=== PATIENT | male | born 1950 | race Caucasian/White ===

== ENCOUNTER 2017-02-08 11:47 | Inpatient (IN) | payer MEDICARE, BC ==
[2017-02-08] VITALS (9 sets, daily range): BP systolic 107–152; BP diastolic 44–65; PULSE 70–79; RESP 14–18; Ht 160 cm; Wt 76.3 kg
[~2017-02-08] VITALS: Ht 160 cm; Wt 76.3 kg
[2017-02-08] MEDS ORDERED: ATEN50TA PO (12:41)
[2017-02-08] MEDS ORDERED: ATOR10TA65 PO (12:41)
[2017-02-08] MEDS ORDERED: ASPI-535 PO (12:41)
[2017-02-08] MEDS ORDERED: ACET325T45 PO (12:41)
[2017-02-08] MEDS ORDERED: NITR0.4T6 SL (12:46)
[2017-02-08] MEDS ORDERED: MAGN400O4 PO (12:46)
[2017-02-08] MEDS ORDERED: MORP2SYR IV (12:46)
[2017-02-08] MEDS ORDERED: ALUM1GRA PO (12:46)
[2017-02-08] MEDS ORDERED: ONDA2VIA31 IV (12:46)
[2017-02-08] MEDS ORDERED: IODIXANOL LOCM 100 ML BTL ONE ×2 (13:48→15:12)
[2017-02-08] MEDS ORDERED: LIDOCAINE 1% (MDV) 20 ML INJ ONE (13:48)
[2017-02-08] MEDS ORDERED: NITROGLYCERIN (IC) 100 MCG/ML INJ ONE (13:49)
[2017-02-08] MEDS ORDERED: HEPARIN 1000 UNITS/ML 10 ML INJ ONE (13:49)
[2017-02-08] MEDS ORDERED: VERAPAMIL 5 MG INJ ONE (13:49)
[2017-02-08] MEDS ORDERED: MIDAZOLAM 1 MG/ML 2 ML INJ ONE (13:50)
[2017-02-08] MEDS ORDERED: FENTAnyl 50 MCG/ML VIAL ONE (13:51)
[2017-02-08] MEDS ORDERED: ONDANSETRON 4 MG INJ ONE (15:01)
[2017-02-08] MEDS ORDERED: FUROSEMIDE 40 MG INJ ONE (15:02)
[2017-02-08 15:11] LABS: AADO2 Arterial 53.6 mmHg (7.0-24.0); Arterial Base Excess -1.7 mmol/L (-3.0-3); Arterial COHb 0.1 % (0.0-3.0); Arterial Fraction of Oxyhgb 91.6 % (93.0-99.0); Arterial HCO3 21.4 mmol/L (22.0-26.0); Arterial MetHb 0.4 % (0.0-1.5); Arterial Total Hemglobin 14.2 g/dl (12.0-18.0); MODE ROOM AIR
[2017-02-08 15:13] LABS: Arterial Base Excess -2.9 mmol/L (-3.0-3); Arterial COHb 0.6 % (0.0-3.0); Arterial Fraction of Oxyhgb 70.6 % (93.0-99.0); Arterial HCO3 20.5 mmol/L (22.0-26.0); Arterial MetHb 0.5 % (0.0-1.5); Arterial Total Hemglobin 14.6 g/dl (12.0-18.0); MODE ROOM AIR
[2017-02-08] MEDS ORDERED: SOD CHLORIDE 0.9% 500 ML ONE (15:32)
[2017-02-08] MEDS ORDERED: HOLD all METFORMIN and METFORMIN CONTAINING medications for 48 hours post procedure. Chec XX ONE (16:30)
[2017-02-08] MEDS ORDERED: morphine 4 MG/ML VIAL IV PRN (16:30)
[2017-02-08] MEDS ORDERED: ONDANSETRON 4 MG INJ IV PRN (16:30)
--- NOTE | 2017-02-08 16:41 | OPR ---
Date/Time of Note Date/Time of Note DATE: 02/08/17 TIME: 16:10 Operative Report Free Text/Dictation Procedure Date: 02/08/2017 Procedures Performed: 1)Left heart catheterization with selective left and right coronary angiography. 2)Right heart catheterization. 3)Selective SALDIVAR angiography 4)Aortogram 5)Right femoral artery selective angiography Pre-operative Diagnosis: Unstable angina. Bio AVR with possible severe regurgitation, CAD s/p CABG, h/o coarctation repair, h/o ascending aorta aneurysm (4.9 cm 2010). Post-operative Diagnosis:Same as above plus Severe AR, occluded vein grafts. Indications: 66 yo M with a h/o surgical coarctation repair late , s/p bio AVR 2006, CAD s/p CABG 2006 (reportedly 3 vessel), ascending aorta aneurysm (4.[address] 2010), who presented with chest pain and SOB. The pt was initially treated for CHF. His troponins were negative and so he underwent treadmill stress nuclear study. The pt had chest pain and dyspnea starting at [address] depressions. The nuclear perfusion imaging showed a small reversible septal defect with preserved EF. The pt was brought to the cardiac wharf laborer for complete evaluation. Description of Procedure: After informed consent, the patient was brought to the cardiac catheterization lab. The procedure site was prepped and draped in usual manner. The patient was premedicated with versed 1 mg and fentanyl 25 mcg. 10 mL lidocaine was injected into the right groin. Next using the Seldinger technique, the 7 amharic sheath was inserted into the right femoral vein and the 6 amharic sheath into the right femoral artery. The right heart catheterization was then obtained including saturations. Next the pigtail catheter was advanced to the left ventricle and hemodynamics obtained. Pullback gradients were obtained. Next an aortogram was performed. Subsequently the JL5 catheter was used to engage the left coronary. The JR4 would not engage the RCA so it was used to obtain selective angiography of the SALDIVAR. The Gio right catheter was used to engage the RCA. Next femoral angiography was done but the site was not suitable for closure so manual pressure was used for hemostasis. Findings: Anatomy Left main: no significant disease LAD: ostial 30%, mid subtotal 100%, fills via SALDIVAR Diagonal: luminal irregularities Circumflex:luminal irregularities Obtuse marginal:luminal irregularities RCA: mid long 40% PDA:luminal irregularities PLV:luminal irregularities No vein grafts seen by aortogram and no competitive flow seen in Cx/OM or RCA territories SALDIVAR-LAD: aneurysmal dilation throughout. Within one aneurysmal segment there is a 50-60% stenosis however when compared with the healthy SALDIVAR segment proximally, it is similar. Aortogram: 1)Severe aortic regurgitation 2)Ascending aorta aneurysm (measures up to 4.0 cm but is known to be as much as 4.9cm on CT 2010) 3)Coarctation site noted, likely mild. No gradient across coarctation Hemodynamics: LV:145/0 Ao: 125/41 LVEDP: 33 mmHg RA: 9,8 (6) RV: 34/0, EDP 7 PA 35/11 (22) PW: 15,15 (12) PA sat : 71% FA sat 92% CO: 5.9 CI: 3.3 Contrast used: 165 mL Fluoroscopy time: 9.7 min Assessment: 1)Severe aortic regurgitation of bioprosthetic AVR 2)CAD with occluded vein grafts. Intermediate RCA disease (likely nonischemic) . Intermediate SALDIVAR disease (in an aneurysmal segment). 3)Ascending aorta aneurysm: 4.0cm by cath and echo. Previously 4.9cm by CT 2010. 4)Coarctation repair: no gradient noted. Plan: -Surgical evaluation for multidisciplinary decision making (though this would be his third sternotomy and not ideal) -May need to better evaluate aortic aneurysm by CT (assuming renal function remains ok). If >5.5cm, may need aorta replacement, redo AVR, +/- CABG. If <5cm , possibly consideration for TAVR +/- FFR and PCI of SALDIVAR (though only small septal ischemia by MPI and symptoms may all just be related to his aortic valve) PORTILLO GUO Feb 08, 2017 16:41
[2017-02-08] MEDS: ATORVASTATIN 80 MG TAB PO SCH (20:52)
[2017-02-09] VITALS (12 sets, daily range): BP systolic 111–140; BP diastolic 47–58; PULSE 69–83; RESP 16–19
[2017-02-09 07:27] LABS: BASOPHILS % 0.3 % (0.0-2.0); EOSINOPHILS # 0.1 10^3/ul (0.0-0.5); EOSINOPHILS % 2.3 % (0.0-7.0); HEMATOCRIT 37.1 % (42.0-52.0); HEMOGLOBIN 12.7 g/dl (14.0-18.0); LYMPHOCYTES # 1.6 10^3/ul (0.8-2.9); MEAN CORPUSCULAR HEMOGLOBIN 30.5 pg (29.0-33.0); MEAN CORPUSCULAR HGB CONC 34.2 g/dl (32.0-37.0); MEAN PLATELET VOLUME 10.1 fl (7.4-10.4); MONOCYTE # 0.6 10^3/ul (0.3-0.9); NEUTROPHIL # 3.8 10^3/ul (1.6-7.5); NEUTROPHILS % 61.1 % (39.0-77.0); PLATELET COUNT 153 10^3/UL (140-415); RED BLOOD COUNT 4.17 10^6/ul (4.70-6.10); RED CELL DISTRIBUTION WIDTH 13.1 % (11.5-14.5); WHITE BLOOD COUNT 6.2 10^3/ul (4.8-10.8)
[2017-02-09 07:53] LABS: CALCIUM 8.8 mg/dl (8.4-10.2); CREATININE 1.48 mg/dl (0.61-1.24); POTASSIUM 4.1 mmol/L (3.5-5.1)
--- NOTE | 2017-02-09 08:38 | CONS ---
Date/Time of Note Date/Time of Note DATE: 02/09/17 TIME: 08:34 Assessment/Plan Assessment/Plan Chief Complaint/Hosp Course Severe aortic regurgitation of bioprosthetic AVR: needs AVR either surgical or TAVR CAD s/p CABG: occluded vein grafts. Intermediate RCA disease (likely nonischemic). Intermediate SALDIVAR disease (in an aneurysmal segment) which may be ischemic. Ascending aorta aneurysm: 4.0cm by cath and echo. Previously 4.9cm by CT 2010. Needs repeat evaluation Coarctation repair: no gradient noted Acute diastolic/valvular heart failure: Mild on admission and prior to cath.EDP was elevated by cath. Now euvolemic by exam. CKD: Cr 1.4 at baseline. Currently stable but will need to wait until tomorrow to eval for AMELIA -Surgical evaluation for multidisciplinary decision making (though this would be his third sternotomy and not ideal) -Will need to better evaluate aortic aneurysm by CT (assuming renal function remains ok). If >5.5cm, may need aorta replacement, redo AVR, +/- CABG. If <5cm , possibly consideration for TAVR +/- FFR and PCI of SALDIVAR (though only small septal ischemia by MPI and symptoms may all just be related to his aortic valve) -If Cr stable tomorrow, chest CTA to eval aneurysm size -If aneurysm is stable ~5cm, then d/c and will be referred to [facility] for TAVR evaluation -continue ASA, statin -hold BB for now as may worsen AR Problems: Consultation Date/Type/Reason Admit Date/Time Feb 08, 2017 at 16:19 Initial Consult Date 24 HR Interval Summary Free Text/Dictation Doing well overall. No chest pain or SOB. Cr 1.5 this am. Exam/Review of Systems Vital Signs Vitals Vital Signs Date Time Temp Pulse Resp B/P Pulse Ox O2 Delivery O2 Flow Rate FiO2 02/09/17 08:11 70 02/09/17 07:35 98.8 18 111/49 93 02/09/17 00:10 Room Air Intake and Output 02/08/17 02/08/17 02/09/17 15:00 23:00 07:00 Intake Total 440 ml 120 ml Output Total 800 ml Balance -360 ml 120 ml Exam Constitutional: alert, oriented Psych: no complaints Head: atraumatic, normocephalic Neck: jvd (7cm) Respiratory: clear to auscultation, No crackles/rales Cardiovascular: diastolic murmur (2/4), regular rate and rhythm, systolic murmur (2/6) Gastrointestinal: non-tender, soft Extremities: other (right groin no hematoma or bruit ) Neurological: nl mental status, nl speech Results Result Diagram: 02/09/17 0649 02/09/17 0649 Results 24 hrs Laboratory Tests Test 02/08/17 15:02 02/08/17 15:03 02/09/17 06:49 Blood Gas Specimen Source Blood arterial Blood arterial Arterial Blood Date Drawn 02/08/2017 2:50:58 PM 02/08/2017 2:50:04 PM Arterial Blood pH (Temp corrected) 7.460 H 7.421 Arterial Blood pCO2 (Temp correct) 30.5 L 32.3 L Arterial Blood pO2 (Temp corrected) 60.1 L 37.1 *L Arterial Blood HCO3 21.4 L 20.5 L Arterial Blood Base Excess -1.7 -2.9 Arterial Blood Oxygen Saturation 92.1 L 71.4 L [place] Test N/A N/A Arterial Blood Gas Puncture Site Femoral PUL ART LINE Arterial Blood Carboxyhemoglobin 0.1 0.6 Arterial Blood Methemoglobin 0.4 0.5 Blood Gas A-a O2 Differential 53.6 H 74.0 H Oxyhemoglobin Percent 91.6 L 70.6 L Total Hemoglobin 14.2 14.6 Blood Gas Temperature 36.0 37.0 Blood Gas Modality ROOM AIR ROOM AIR FiO2 21.0 21.0 Blood Gas Critical Value Read Back DR. BRANT GUO Blood Gas Notified Whom Marlin Isaac Blood Gas Notified Time 02/08/2017 3:10:43 PM 02/08/2017 3:13:00 PM White Blood Count 6.2 Red Blood Count 4.17 L Hemoglobin 12.7 L Hematocrit 37.1 L Mean Corpuscular Volume 89.0 Mean Corpuscular Hemoglobin 30.5 Mean Corpuscular Hemoglobin Concent 34.2 Red Cell Distribution Width 13.1 Platelet Count 153 Mean Platelet Volume 10.1 Neutrophils % 61.1 Lymphocytes % 26.0 Monocytes % 10.0 Eosinophils % 2.3 Basophils % 0.3 Nucleated Red Blood Cells % 0.0 Neutrophils # 3.8 Lymphocytes # 1.6 Monocytes # 0.6 Eosinophils # 0.1 Basophils # 0.0 Nucleated Red Blood Cells # 0.0 Sodium Level 142 Potassium Level 4.1 Chloride Level 103 Carbon Dioxide Level 25 Anion Gap 18 H Blood Urea Nitrogen 24 H Creatinine 1.48 H Glucose Level 96 Calcium Level 8.8 Medications Medications Current Medications Morphine Sulfate (morphine) 2 mg Q2H PRN IV FOR NON CARDIAC PAIN (4-10); Start 02/08/17 at 16:30 Ondansetron HCl (Zofran Inj) 4 mg Q4H PRN IV NAUSEA AND/OR VOMITING; Start 02/08 at 16:30 Aspirin (Aspirin) 325 mg DAILY PO ; Start 02/09/17 at 09:00 Atorvastatin Calcium (Lipitor) 80 mg HS PO Last administered on 02/08/17t 20:52 ; Admin Dose 80 MG; Start 02/08/17 at 21:00 PORTILLO GUO Feb 09, 2017 08:38
[2017-02-09] MEDS: ASPIRIN 325 MG TAB PO SCH (09:02)
[2017-02-09] MEDS ORDERED: ACETAMINOPHEN 325 MG TAB PO PRN (13:00)
[2017-02-09] MEDS ORDERED: NITROGLYCERIN (SL) 0.4 MG TAB SL PRN (13:00)
--- NOTE | 2017-02-09 15:36 | CONS ---
Date/Time of Note Date/Time of Note DATE: 02/09/17 TIME: 15:29 Assessment/Plan Assessment/Plan Additional Assessment/Plan 66 year old male with CHF and severe AI in a bioprosthetic valve with patent SALDIVAR to LAD. He has a history of an ascending aortic aneurysm measuring 4.9cm several years ago. He will need to have a repeat ct chest to assess his aneurysm size. If over 5.3cm would have to consider redo sternotomy and AVR/ repair of aneurysm. I discussed this with the patient and his son in law. Will await ct chest in renal function stable. Consultation Date/Type/Reason Admit Date/Time Feb 08, 2017 at 16:19 Date of Consultation: Feb 09, 2017 Reason for Consultation aortic insufficiency and ascending aortic aneurysm Referring Provider: PORTILLO UGO of Present Illness 66 year old male admitted with MCKENZIE and CHF. Echo shows severe AI in a bioprosthetic valve place 10 years ago. Also had cabgx2 but cath shows only patent SALDIVAR. He also had a coarctation repair via a left thoracotomy. We are asked to see regarding AVR Constitutional: No chills, No diaphoresis, No disoriented, No febrile, No improved, No no complaints, No other, No poor po, No requiring IVF, No requiring O2 Eyes: No discharge, No no complaints, No other, No pain, No redness, No visual change ENT: No bleeding, No congestion, No discharge, No dysphagia, No no complaints, No other, No pain, No sore throat Respiratory: cough, shortness of breath Cardiovascular: No chest pain, No edema, No lightheadedness, No no complaints, No orthopenea, No other, No palpitations, No paroxysmal nocturnal dyspnea Gastrointestinal: No blood, No constipation, No decreased appetite, No diarrhea , No flatus, No nausea, No no complaints, No other, No pain, No passing stool, No vomiting Genitourinary: No bleeding, No discharge, No dysuria, No flank pain, No hematuria, No no complaints, No other Musculoskeletal: No back pain, No bone/joint pain, No neck pain, No no complaints, No other, No restricted range of motion, No swelling Skin: No bruising, No erythema, No laceration, No no complaints, No other, No pruritis, No rash, No skin lesions Neurologic: No confusion, No dizziness, No focal-weakness, No headache, No no complaints, No other, No seizure, No syncope Endocrine: No dry skin, No no complaints, No other, No polydypsia, No polyuria , No temp intolerance Lymphatic: No adenopathy, No lymphadema, No no complaints, No other, No tender nodes Psychological: no complaints, No anxiety, No confusion, No depression, No nl mood/affect, No other, No suicidal Immunologic: No immunodeficiency, No no complaints, No other, No pruritis, No rhinitis, No urticaria Past Medical History Medical History: no pertinent history, coronary artery disease, hypertension Past Surgical History coarctation repair via left thoracotomy and AVR/CABG Family History Significant Family History: no pertinent family hx Social History Alcohol Use: none Smoking Status: Former smoker Drug Use: none Exam/Review of Systems Vital Signs Vitals Vital Signs Date Time Temp Pulse Resp B/P Pulse Ox O2 Delivery O2 Flow Rate FiO2 02/09/17 12:09 77 02/09/17 11:15 98.3 16 114/51 95 02/09/17 00:10 Room Air Intake and Output 02/08/17 02/08/17 02/09/17 15:00 23:00 07:00 Intake Total 440 ml 120 ml Output Total 800 ml Balance -360 ml 120 ml Exam Constitutional: No alert, No distress, No frail, No non-verbal, No obese, No oriented, No other, No well developed Psych: No anxiety, No confusion, No depression, No nl mood/affect, No no complaints, No other, No suicidal Head: No atraumatic, No hematomas, No lacerations, No normocephalic, No other Eyes: No EOMI, No PERRL, No fundi, disc, No icteric, No nl conjunctiva, No nl lids, No nl sclera, No other ENMT: No intubated, No mucosa pink and moist, No nl external ears & nose, No nl lips & teeth, No nl nasal mucosa & septum, No other, No tympanic membranes Neck: No bruits, No jvd, No masses, No non-tender, No nuchal rigidity, No other , No supple, No thyromegaly Respiratory: No clear to auscultation, No congested cough, No crackles/rales, No diminished breath sounds, No intercostal retraction, No labored breathing, No normal air movement, No other, No respirations, No tactile fremitus, No wheezing Cardiovascular: diastolic murmur Gastrointestinal: No ascites, No bowel sounds, No distended, No firm, No hepatomegaly, No mass, No nl liver, spleen, No non-tender, No other, No rebound or guarding, No soft, No splenomegaly, No surgical scars, No tender Genitourinary - Male: No CVA tenderness, No discharge, No nl penis, No nl scrotum, No other Musculoskeletal: No joint tenderness, No muscle tone, No muscle weakness, No nl extremities to inspection, No nl gait and stance, No other, No range of motion, No spine non-tender, No swelling Extremities: No calf tenderness, No clubbing, No cyanosis, No edema, No normal pulses, No other, No palpable cord, No pitting pedal edema, No tenderness Neurological: 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, No DTR's symmetric, No confused, No focal weakness, No lethargic, No nl mental status, No nl speech, No nl strength, No numbness, No other, No reflexes, No unresponsive Lymph: No enlarged, No nl lymph nodes, No nontender, No other Results Result Diagram: 02/09/17 0649 02/09/17 0649 Results 24 hrs Laboratory Tests Test 02/09/17 06:49 White Blood Count 6.2 Red Blood Count 4.17 L Hemoglobin 12.7 L Hematocrit 37.1 L Mean Corpuscular Volume 89.0 Mean Corpuscular Hemoglobin 30.5 Mean Corpuscular Hemoglobin Concent 34.2 Red Cell Distribution Width 13.1 Platelet Count 153 Mean Platelet Volume 10.1 Neutrophils % 61.1 Lymphocytes % 26.0 Monocytes % 10.0 Eosinophils % 2.3 Basophils % 0.3 Nucleated Red Blood Cells % 0.0 Neutrophils # 3.8 Lymphocytes # 1.6 Monocytes # 0.6 Eosinophils # 0.1 Basophils # 0.0 Nucleated Red Blood Cells # 0.0 Sodium Level 142 Potassium Level 4.1 Chloride Level 103 Carbon Dioxide Level 25 Anion Gap 18 H Blood Urea Nitrogen 24 H Creatinine 1.48 H Glucose Level 96 Calcium Level 8.8 Medications Medications Current Medications Morphine Sulfate (morphine) 2 mg Q2H PRN IV FOR NON CARDIAC PAIN (4-10); Start 02/08/17 at 16:30 Ondansetron HCl (Zofran Inj) 4 mg Q4H PRN IV NAUSEA AND/OR VOMITING; Start 02/08 at 16:30 Aspirin (Aspirin) 325 mg DAILY PO Last administered on 02/09/17 09:02; Admin Dose 325 MG; Start 02/09/17 at 09:00 Atorvastatin Calcium (Lipitor) 80 mg HS PO Last administered on 02/08/17 20:52 ; Admin Dose 80 MG; Start 02/08/17 at 21:00 Acetaminophen (Tylenol Tab) 650 mg Q6H PRN PO PAIN; Start 02/09/17 at 13:00 Atenolol (Tenormin) 50 mg BID PO ; Start 02/09/17 at 21:00 Magnesium Hydroxide (Milk Of Mag) 30 ml HS PO ; Start 02/09/17 at 21:00 Nitroglycerin (Nitroglycerin (Sl Tab) 0.4 Mg) 1 tab [id number] PRN SL CHEST PAIN ; Start 02/09/17 at 13:00 SOCO TYLER MD Feb 09, 2017 15:36
[2017-02-09 17:43] LABS: ADD UMIC YES; UR ASCORBIC ACID NEGATIVE (NEGATIVE); UR BILIRUBIN (Dip) NEGATIVE (NEGATIVE); UR BLOOD (Dip) 1+ mg/dL (NEGATIVE); UR CLARITY CLEAR (CLEAR); UR COLOR YELLOW (YELLOW); UR GLUCOSE (Dip) NEGATIVE (NEGATIVE); UR KETONES (Dip) NEGATIVE (NEGATIVE); UR LEUKOCYTE ESTERASE (Dip) NEGATIVE Leu/ul (NEGATIVE); UR MUCUS FEW /HPF (NONE SEEN); UR NITRITE (Dip) NEGATIVE (NEGATIVE); UR RBC 4 /HPF (0-5); UR SPECIFIC GRAVITY (Dip) 1.032 (1.003-1.030); UR TOTAL PROTEIN (Dip) NEGATIVE (NEGATIVE); UR UROBILINOGEN (Dip) 2+ mg/dL (NEGATIVE)
--- NOTE | 2017-02-09 18:04 | RADRPT ---
PROCEDURE: Renal US. CLINICAL INDICATION: Acute kidney injury. TECHNIQUE: Multiple sonographic images of the kidneys and urinary bladder were obtained. The imag es were reviewed on a PACS workstation. COMPARISON: No prior studies are available for comparison. FINDINGS: The right kidney measures 10.3 x 4.6 x 6.1 cm. The left kidney measures 10.5 x 5.9 x 4.6 cm. There is no renal mass. There is no hydronephrosis. There is no renal calculus. Renal parenchymal thickness is normal bilaterally. Echogenicity is normal bilaterally. The perirenal regions are normal with no fluid collection or mass. The urinary bladder is unremarkable. IMPRESSION: 1. Unremarkable renal ultrasound. RPTAT: QQ .Donovan Enrique MD, Date Time Electronically viewed and signed by .Donovan Enrique MD, on 02/09/2017 18:04 .R/
[2017-02-09 18:10] LABS: PROTEIN URINE < 5.0 mg/dl (0.0-11.9)
[2017-02-09] MEDS: MAGNESIUM HYDROXIDE 30ML CUP PO SCH (20:34)
[2017-02-09] MEDS: ATORVASTATIN 80 MG TAB PO SCH (20:34)
[2017-02-09] MEDS ORDERED: ATENOLOL 50 MG TAB PO SCH (21:00)
--- NOTE | 2017-02-09 23:46 | HP ---
Date/Time of Note Date/Time of Note DATE: 02/09/17 TIME: 23:30 Assessment/Plan VTE Prophylaxis VTE Prophylaxis Intervention: ambulation VTE Contraindication Reason: peripheral vascular disease Lines/Catheters IV Catheter Type (from Nrsg): [place] [employer] line still needed: No Reason Cath still needed: urinary retention Assessment/Plan Assessment/Plan 1.S/P AVR now with severe regurgitation; preserved LVEF 2.S/P Resection of coarctation of aorta 3.On cumadine 4.HTN 5.Dyslipidemia 6.Recent (less than a month )hx of left leg selling after long flight( possible thrombus) 7.CAD 8.BPH 9.Thoracic aortic aneurism 10.LBP 11.KELLY of knees 12 incomplete data. HPI/ROS Admit Date/Time Admit Date/Time I was asked by the family to fallow the patient as an attending. Discussed with Mike Luciano.Hx from the patient, ,daughter, son and by reviewing the office record.Feb 08, 2017 at 16:19 Hx of Present Illness Doing well until about one week ago when he felt weakness while swimming.Patint returned from [facility] about 2 weeks ago and had noticed of having left leg swelling after about 14 hours of flight from [facility]. 3-4 days after that swelling disappeared. Last 2-3 days before entering the [facility] hospital his sob got even worse. He was unable to walk 6-7 steps. At night he literally was suffocating.Transferred to [facility] for angio and valvular status check.Chart reviewed. ROS Eyes: No discharge, No no complaints, No other, No pain, No redness, No visual change ENT: No bleeding, No congestion, No discharge, No dysphagia, No no complaints, No other, No pain, No sore throat Respiratory: cough, shortness of breath Cardiovascular: No chest pain, No edema, No lightheadedness, No no complaints, No orthopenea, No other, No palpitations, No paroxysmal nocturnal dyspnea Gastrointestinal: No blood, No constipation, No decreased appetite, No diarrhea , No flatus, No nausea, No no complaints, No other, No pain, No passing stool, No vomiting Genitourinary: No bleeding, No discharge, No dysuria, No flank pain, No hematuria, No no complaints, No other Musculoskeletal: No back pain, No bone/joint pain, No neck pain, No no complaints, No other, No restricted range of motion, No swelling Skin: No bruising, No erythema, No laceration, No no complaints, No other, No pruritis, No rash, No skin lesions Neurologic: No confusion, No dizziness, No focal-weakness, No headache, No no complaints, No other, No seizure, No syncope Lymphatic: No adenopathy, No lymphadema, No no complaints, No other, No tender nodes Psychological: No anxiety, No confusion, No depression, No nl mood/affect, No no complaints, No other, No suicidal Immunologic: No immunodeficiency, No no complaints, No other, No pruritis, No rhinitis, No urticaria PMH/Family/Social Past Medical History Medical History: angina, congestive heart failure, coronary artery disease, deep vein thrombosis, GERD, GI bleed, high cholesterol, hypertension, urinary tract infection Past Surgical History Past Surgical Hx: other (Resection of the coarctation of aorta about 1986 in [facility] [place]; AVR 2005 in [facility] ; ) Family History Significant Family History: heart disease, COPD Social History Alcohol Use: none Smoking Status: Former smoker Drug Use: none Exam/Review of Systems Vital Signs Vitals Vital Signs Date Time Temp Pulse Resp B/P Pulse Ox O2 Delivery O2 Flow Rate FiO2 02/09/17 20:00 83 02/09/17 19:23 98.1 19 140/50 99 02/09/17 00:10 Room Air Intake and Output 02/08/17 02/08/17 02/09/17 15:00 23:00 07:00 Intake Total 440 ml 120 ml Output Total 800 ml Balance -360 ml 120 ml Exam Constitutional: alert, distress, frail, non-verbal, oriented, well developed, No other Psych: anxiety, depression, No confusion, No nl mood/affect, No no complaints, No other, No suicidal Head: No atraumatic, No hematomas, No lacerations, No normocephalic, No other Eyes: EOMI, PERRL, nl lids, No fundi, disc, No icteric, No nl conjunctiva, No nl sclera, No other ENMT: nl external ears & nose, nl lips & teeth, nl nasal mucosa & septum, tympanic membranes, No intubated, No mucosa pink and moist, No other Neck: bruits, jvd, nuchal rigidity, No masses, No non-tender, No other, No supple, No thyromegaly Respiratory: clear to auscultation, diminished breath sounds, normal air movement, No congested cough, No crackles/rales, No intercostal retraction, No labored breathing, No other, No respirations, No tactile fremitus, No wheezing Cardiovascular: bruits, diastolic murmur, jugular venous distention (JVD), murmurs/extra sounds, other (s/p midline sternothomy scar.), systolic murmur , No S3, No S4, No edema, No gallop, No irregular rhythm, No nl pulses, No regular rate and rhythm, No rub Gastrointestinal: bowel sounds, distended, nl liver, spleen, surgical scars Genitourinary - Male: CVA tenderness, nl penis, nl scrotum Genitourinary - Female: CVA tenderness Musculoskeletal: joint tenderness, muscle tone, muscle weakness Extremities: normal pulses Neurological: PIPE WELDER II-XII intact, nl mental status, nl speech, No DTR's symmetric, No confused, No focal weakness, No lethargic, No nl strength, No numbness, No other, No reflexes, No unresponsive Skin: No diaphoresis, No ecchymosis, No laceration, No nl turgor, No other, No puncture, No rash or lesions Lymph: No enlarged, No nl lymph nodes, No nontender, No other Labs Result Diagram: 02/09/1749 02/09/17 0649 Medications Medications Current Medications Morphine Sulfate (morphine) 2 mg Q2H PRN IV FOR NON CARDIAC PAIN (4-10); Start 02/08/17 at 16:30 Ondansetron HCl (Zofran Inj) 4 mg Q4H PRN IV NAUSEA AND/OR VOMITING; Start 02/08 at 16:30 Aspirin (Aspirin) 325 mg DAILY PO Last administered on 02/09/17 09:02; Admin Dose 325 MG; Start 02/09/17 at 09:00 Atorvastatin Calcium (Lipitor) 80 mg HS PO Last administered on 02/08/17 20:52 ; Admin Dose 80 MG; Start 02/08/17 at 21:00 Acetaminophen (Tylenol Tab) 650 mg Q6H PRN PO PAIN; Start 02/09/17 at 13:00 Magnesium Hydroxide (Milk Of Mag) 30 ml HS PO ; Start 02/09/17 at 21:00 Nitroglycerin (Nitroglycerin (Sl Tab) 0.4 Mg) 1 tab [id number] PRN SL CHEST PAIN ; Start 02/09/17 at 13:00 VICKY CRAIG MD Feb 09, 2017 23:40
[2017-02-10] VITALS (12 sets, daily range): BP systolic 104–124; BP diastolic 51–59; PULSE 73–83; RESP 19–20
--- NOTE | 2017-02-10 05:40 | CONS ---
DATE OF ADMISSION: 02/08/2017 DATE OF CONSULTATION: 02/09/2017 CHIEF COMPLAINT: Chest pain. HISTORY OF PRESENT ILLNESS: This is a 66-year-old male with a past medical history of hypertension, a history of extensive cardiac history including CABG, aortic valve replacement. The patient presented to an outside hospital approximately 2 days ago with experience of epigastric discomfort which traveled to his chest progressively, worsening. The patient upon arrival to the outside hospital, was subsequently admitted. The patient was stabilized and then transferred to [facility] to undergo elective cardiac catheterization. The patient following the catheterization was noted to have multi-vessel disease, severe aortic insufficiency. The patient was admitted to telemetry for further evaluation. In terms of the patient's renal history, the patient at the outside hospital noted to have creatinine 1.4 mg/dL. The patient has no prior history of chronic kidney disease. He denies any recent NSAID use ,any rashes, frothy urine. PAST MEDICAL HISTORY: As stated above. History of coronary artery disease, hypertension, aortic stenosis. PAST SURGICAL HISTORY: Includes: 1. CABG 2003. 2. The aortic valve replacement in 2006. 3. Stent placements in 2003. FAMILY HISTORY: Noncontributory. SOCIAL HISTORY: Social drinker. MEDICATION: Reviewed and reconciled. REVIEW OF SYSTEMS: Fourteen point review of systems was conducted. Pertinent positives in HPI, otherwise negative. PHYSICAL EXAMINATION: VITAL SIGNS: Blood pressure is 112/47, respirations 16, pulse 75, temperature 98.4. HEENT: Head is normocephalic. NECK: Supple. HEART: Regular rate. LUNGS: Diminished breath sounds at the base. ABDOMEN: Soft, nontender to palpation. No rebound or guarding. EXTREMITIES: Negative for clubbing, cyanosis, no edema. DERMATOLOGIC: No rashes. MUSCULOSKELETAL: No joint effusion. NEUROLOGIC: No focal deficits. LABORATORY: The patient's laboratory data shows sodium 142, potassium 4.1, chloride 103, BUN 24, creatinine 1.48. White count 6.2, hemoglobin 12.7, hematocrit 37.1, platelet count is 163. ASSESSMENT AND PLAN: 1. Chest pain. The patient is status post cardiac catheterization which shows intermediate RCA disease, HOLLOWAY disease. Plan at this point, continue current medical management. Will follow up with Cardiology for further recommendations. 2. Severe aortic regurgitation with a bioprosthetic valve. The patient needs aortic valve replacement. A CT surgery consult has been placed. Will follow up recommendations. Monitor closely. 3. Ascending aortic aneurysm. The patient is pending possible CT angio once renal function stabilizes. 4. Nonoliguric acute kidney injury with unknown baseline creatinine. Etiology may be secondary to hemodynamics. Possibility of contrast induced nephropathy is a consideration. Plan is to check a urinalysis with micro analysis. Check urine electrolytes. The patient is status post IV fluids. Continue supportive care. Renally dose medications. Avoid BRISEYDA inhibitor at this time. 5. Acute diastolic heart failure. The patient appears euvolemic on exam. Monitor Is and OS closely. 6. History of coronary disease, status post CABG. Continue medical management. 7. Hypertension. Continue current blood pressure regimen. 8. Gastrointestinal and deep venous thrombosis prophylaxis. Continue PPI and sequential leg squeezes. Dictated By: Kingsley Reyez DO /alyssia/jayden /Document#: [id number]
[2017-02-10 07:25] LABS: BASOPHILS % 0.3 % (0.0-2.0); EOSINOPHILS # 0.2 10^3/ul (0.0-0.5); EOSINOPHILS % 3.1 % (0.0-7.0); HEMATOCRIT 34.7 % (42.0-52.0); HEMOGLOBIN 11.9 g/dl (14.0-18.0); LYMPHOCYTES # 1.8 10^3/ul (0.8-2.9); LYMPHOCYTES % 29.1 % (15.0-51.0); MEAN CORPUSCULAR HEMOGLOBIN 30.5 pg (29.0-33.0); MEAN CORPUSCULAR HGB CONC 34.3 g/dl (32.0-37.0); MEAN PLATELET VOLUME 10.2 fl (7.4-10.4); MONOCYTE # 0.6 10^3/ul (0.3-0.9); MONOCYTES % 10.2 % (0.0-11.0); NEUTROPHIL # 3.5 10^3/ul (1.6-7.5); PLATELET COUNT 151 10^3/UL (140-415); RED CELL DISTRIBUTION WIDTH 13.2 % (11.5-14.5); WHITE BLOOD COUNT 6.2 10^3/ul (4.8-10.8)
[2017-02-10 07:51] LABS: CREATININE 1.28 mg/dl (0.61-1.24); MAGNESIUM 1.9 mg/dl (1.7-2.5); PHOSPHORUS 4.1 mg/dl (2.5-4.9); POTASSIUM 4.2 mmol/L (3.5-5.1)
[2017-02-10] MEDS: ASPIRIN 325 MG TAB PO SCH (08:46)
[2017-02-10] MEDS ORDERED: SOD CHLORIDE 0.9% 1,000 ML IV ONE ×2 (11:00→20:00)
--- NOTE | 2017-02-10 11:03 | PN ---
DATE: 02/10/2017 SUBJECTIVE DATA: The patient is stable. No acute events overnight. No fevers, chills, nausea, vomiting. No shortness of breath. OBJECTIVE DATA: VITAL SIGNS: Blood pressure is 104/51, respirations 20, pulse 76, temperature 98.5. HEENT: Head is normocephalic. NECK: Supple. HEART: Regular rate. LUNGS: Diminished breath sounds at the bases. ABDOMEN: Soft, nontender to palpation. No rebound or guarding. EXTREMITIES: Negative for clubbing, cyanosis. No edema. DERMATOLOGIC: No rashes. MUSCULOSKELETAL: No joint effusion. NEUROLOGIC: No change in exam. The patient's medications have been reviewed. LABORATORY AND DIAGNOSTIC DATA: Sodium 1402, potassium 4.2, chloride 125. Creatinine 1.28. White count 6.2, hemoglobin 9.9, hematocrit 34.7; platelet count is 151. ASSESSMENT AND PLAN: 1. Nonoliguric acute kidney injury with unknown baseline creatinine. Etiology is likely secondary to hemodynamics. Renal function improved over 24 hours. No evidence of contrast-induced nephropathy at this time. At this point, I would recommend to resume IV fluids prior to any CT angiogram to optimize and prevent contrast-associated nephropathy. Otherwise continue supportive care, renally dose medications for nephrotoxins. 2. Anemia. Monitor hemoglobin and hematocrit levels. 3. Mineral bone disorder. Will monitor calcium and phosphorus levels. 4. Severe aortic insufficiency with bioprosthetic valve. The patient has been evaluated by CT Surgery, pending possible aortic valve replacement. 5. Ascending aortic aneurysm. The patient is pending CT angiogram. Follow up with CT Surgery for recommendations. 6. Acute diastolic heart failure. The patient is euvolemic on exam. Continue to monitor. 7. Coronary artery disease. History of coronary artery bypass graft. Continue medical management. 8. Hypertension. Continue current blood pressure regimen. 9. Gastrointestinal and deep venous thrombosis prophylaxis. Continue proton-pump inhibitor and sequential leg squeezers. Dictated By: Kingsley Reyez DO /alyssia/teto /Document#: [id number]
--- NOTE | 2017-02-10 12:34 | PN ---
Date/Time of Note Date/Time of Note DATE: 02/10/17 TIME: 12:34 Assessment/Plan VTE Prophylaxis VTE Prophylaxis Intervention: ambulation, anti-embolic stocking VTE Contraindication Reason: peripheral vascular disease Lines/Catheters IV Catheter Type (from Nrs): [place] [employer] Central line still needed: No Urinary Cath still in place: No Reason Cath still needed: urinary retention Assessment/Plan Assessment/Plan 1.S/P AVR now with severe regurgitation; preserved LVEF 2.S/P Resection of coarctation of aorta 3.On cumadine 4.HTN 5.Dyslipidemia- 6.Recent (less than a month )hx of left leg selling after long flight( possible thrombus) 7.CAD- s/p CABG 8.BPH 9.Thoracic aortic aneurism 10.LBP 11.KELLY of knees 12 incomplete data. Cont'd Hospitalization Reason: Ct angiogramm. Subjective 24 Hr Interval Summary Free Text/Dictation Dry cough. I am getting tired and sob very easily. Subjective hx not possible: other (weak.) Constitutional: improved, poor po, requiring O2, No chills, No diaphoresis, No disoriented, No febrile, No no complaints, No other, No requiring IVF Eyes: No discharge, No no complaints, No other, No pain, No redness, No visual change ENT: No bleeding, No congestion, No discharge, No dysphagia, No no complaints, No other, No pain, No sore throat Respiratory: cough, shortness of breath, No no complaints, No other, No pain, No pleuritic pain, No sputum, No wheezing Cardiovascular: chest pain, lightheadedness, orthopenea, No edema, No no complaints, No other, No palpitations, No paroxysmal nocturnal dyspnea Gastrointestinal: constipation, pain, passing stool, No blood, No decreased appetite, No diarrhea, No flatus, No nausea, No no complaints, No other, No vomiting Genitourinary: dysuria, flank pain, No bleeding, No discharge, No hematuria, No no complaints, No other Exam/Review of Systems Vital Signs Vitals Vital Signs Date Time Temp Pulse Resp B/P Pulse Ox O2 Delivery O2 Flow Rate FiO2 02/10/17 12:06 98.2 78 20 112/57 98 02/09/17 00:10 Room Air Intake and Output 02/09/17 02/09/17 02/10/17 15:00 23:00 07:00 Intake Total 1080 ml 120 ml Balance 1080 ml 120 ml Exam Constitutional: alert, oriented, well developed, No distress, No frail, No non-verbal, No obese, No other Psych: anxiety, No confusion, No depression, No nl mood/affect, No no complaints, No other, No suicidal Head: atraumatic, normocephalic, No hematomas, No lacerations, No other Eyes: EOMI, PERRL, nl lids, No fundi, disc, No icteric, No nl conjunctiva, No nl sclera, No other ENMT: No intubated, No mucosa pink and moist, No nl external ears & nose, No nl lips & teeth, No nl nasal mucosa & septum, No other, No tympanic membranes Neck: bruits, jvd, No masses, No non-tender, No nuchal rigidity, No other, No supple, No thyromegaly Respiratory: congested cough, diminished breath sounds, No clear to auscultation, No crackles/rales, No intercostal retraction, No labored breathing, No normal air movement, No other, No respirations, No tactile fremitus, No wheezing Cardiovascular: bruits, diastolic murmur, jugular venous distention (JVD), nl pulses, systolic murmur, No S3, No S4, No edema, No gallop, No irregular rhythm, No murmurs/extra sounds, No other, No regular rate and rhythm, No rub Gastrointestinal: distended, nl liver, spleen, non-tender, soft, No ascites, No bowel sounds, No firm, No hepatomegaly, No mass, No other, No rebound or guarding, No splenomegaly, No surgical scars, No tender Genitourinary - Male: nl penis, nl scrotum, No CVA tenderness, No discharge, No other Musculoskeletal: joint tenderness, nl extremities to inspection, nl gait and stance, No muscle tone, No muscle weakness, No other, No range of motion, No spine non-tender, No swelling Extremities: No calf tenderness, No clubbing, No cyanosis, No edema, No normal pulses, No other, No palpable cord, No pitting pedal edema, No tenderness Neurological: AUCTIONEER ART II-XII intact, No DTR's symmetric, No confused, No focal weakness, No lethargic, No nl mental status, No nl speech, No nl strength, No numbness, No other, No reflexes , No unresponsive Skin: No diaphoresis, No ecchymosis, No laceration, No nl turgor, No other, No puncture, No rash or lesions Lymph: No enlarged, No nl lymph nodes, No nontender, No other Results Result Diagram: 02/10/17 0634 02/10/17 0634 Results 24 hrs Laboratory Tests Test 02/09/17 16:00 02/10/17 06:34 Urine Color YELLOW Urine Clarity CLEAR Urine pH 5.0 Urine Specific Lotus 1.032 H Urine Ketones NEGATIVE Urine Nitrite NEGATIVE Urine Bilirubin NEGATIVE Urine Urobilinogen 2+ H Urine Leukocyte Esterase NEGATIVE Urine Microscopic RBC 4 Urine Microscopic WBC 1 Urine Mucus FEW A Urine Hemoglobin 1+ H Urine Random Creatinine 221.42 Urine Random Sodium 47 Urine Glucose NEGATIVE Urine Total Protein < 5.0 White Blood Count 6.2 Red Blood Count 3.90 L Hemoglobin 11.9 L Hematocrit 34.7 L Mean Corpuscular Volume 89.0 Mean Corpuscular Hemoglobin 30.5 Mean Corpuscular Hemoglobin Concent 34.3 Red Cell Distribution Width 13.2 Platelet Count 151 Mean Platelet Volume 10.2 Neutrophils % 57.0 Lymphocytes % 29.1 Monocytes % 10.2 Eosinophils % 3.1 Basophils % 0.3 Nucleated Red Blood Cells % 0.0 Neutrophils # 3.5 Lymphocytes # 1.8 Monocytes # 0.6 Eosinophils # 0.2 Basophils # 0.0 Nucleated Red Blood Cells # 0.0 Sodium Level 142 Potassium Level 4.2 Chloride Level 100 Carbon Dioxide Level 27 Anion Gap 19 H Blood Urea Nitrogen 25 H Creatinine 1.28 H Glucose Level 111 Calcium Level 9.0 Phosphorus Level 4.1 Magnesium Level 1.9 Medications Medications Current Medications Morphine Sulfate (morphine) 2 mg Q2H PRN IV FOR NON CARDIAC PAIN (4-10); Start 02/08/17 at 16:30 Ondansetron HCl (Zofran Inj) 4 mg Q4H PRN IV NAUSEA AND/OR VOMITING; Start 02/08 at 16:30 Aspirin (Aspirin) 325 mg DAILY PO Last administered on 02/10/17 08:46; Admin Dose 325 MG; Start 02/09/17 at 09:00 Atorvastatin Calcium (Lipitor) 80 mg HS PO Last administered on 02/08/17 20:52 ; Admin Dose 80 MG; Start 02/08/17 at 21:00 Acetaminophen (Tylenol Tab) 650 mg Q6H PRN PO PAIN; Start 02/09/17 at 13:00 Magnesium Hydroxide (Milk Of Mag) 30 ml HS PO ; Start 02/09/17 at 21:00 Nitroglycerin 1 tab 1 tab [id number] PRN SL CHEST PAIN; Start 02/09/17 at 13:00 Sodium Chloride (NS) 1,000 ml @ 75 mls/hr [id number] ONCE IV ; Start 02/10/17 at 11 :00; Stop 02/11/17 at 00:19 VICKY CRAIG MD Feb 10, 2017 12:34
[2017-02-10 13:33] LABS: MICROALBUMIN 0.8 mg/dL
[2017-02-10] MEDS: ATORVASTATIN 80 MG TAB PO SCH (20:40)
[2017-02-10] MEDS: MAGNESIUM HYDROXIDE 30ML CUP PO SCH (20:41)
--- NOTE | 2017-02-10 21:20 | CONS ---
Date/Time of Note Date/Time of Note DATE: 02/10/17 TIME: 21:17 Assessment/Plan Assessment/Plan Chief Complaint/Hosp Course Severe aortic regurgitation of bioprosthetic AVR: needs AVR either surgical or TAVR CAD s/p CABG: occluded vein grafts. Intermediate RCA disease (likely nonischemic). Intermediate SALDIVAR disease (in an aneurysmal segment) which may be ischemic. Ascending aorta aneurysm: 4.0cm by cath and echo. Previously 4.9cm by CT 2010. Needs repeat evaluation Coarctation repair: no gradient noted Acute diastolic/valvular heart failure: Mild on admission and prior to cath.EDP was elevated by cath. Now euvolemic by exam. CKD: Stable, no evidence of AMELIA -renal function improving without evidence for AMELIA, appreciate nephrology input -proceed with chest CTA to better evaluate aortic aneurysm by CT (assuming renal function remains ok). If >5.5cm, may need aorta replacement, redo AVR, +/ - CABG. If <5cm, possibly consideration for TAVR +/- FFR and PCI of SALDIVAR ( though only small septal ischemia by MPI and symptoms may all just be related to his aortic valve) -If aneurysm is stable ~5cm, then d/c and will be referred to [facility] for TAVR evaluation -continue ASA, statin -hold BB for now as may worsen AR Problems: Consultation Date/Type/Reason Admit Date/Time Feb 08, 2017 at 16:19 Initial Consult Date 02/09/17 Type of Consultation: Cardiology 24 HR Interval Summary Free Text/Dictation No acute events. Renal function improving. Detailed Summary Additional Comments 14 point review of systems without changes. Exam/Review of Systems Vital Signs Vitals Vital Signs Date Time Temp Pulse Resp B/P Pulse Ox O2 Delivery O2 Flow Rate FiO2 02/10/17 20:16 83 02/10/17 20:00 98.3 20 124/59 96 02/09/17 00:10 Room Air Intake and Output 02/09/17 02/09/17 02/10/17 15:00 23:00 07:00 Intake Total 1080 ml 120 ml Balance 1080 ml 120 ml Exam Constitutional: alert, oriented Psych: no complaints Head: atraumatic, normocephalic Neck: jvd (7cm) Respiratory: clear to auscultation, No crackles/rales Cardiovascular: diastolic murmur (2/4), regular rate and rhythm, systolic murmur (2/6) Gastrointestinal: non-tender, soft Extremities: other (right groin no hematoma or bruit ) Neurological: nl mental status, nl speech Results Result Diagram: 02/10/17 0634 02/10/17 0634 Results 24 hrs Laboratory Tests Test 02/10/17 06:34 White Blood Count 6.2 Red Blood Count 3.90 L Hemoglobin 11.9 L Hematocrit 34.7 L Mean Corpuscular Volume 89.0 Mean Corpuscular Hemoglobin 30.5 Mean Corpuscular Hemoglobin Concent 34.3 Red Cell Distribution Width 13.2 Platelet Count 151 Mean Platelet Volume 10.2 Neutrophils % 57.0 Lymphocytes % 29.1 Monocytes % 10.2 Eosinophils % 3.1 Basophils % 0.3 Nucleated Red Blood Cells % 0.0 Neutrophils # 3.5 Lymphocytes # 1.8 Monocytes # 0.6 Eosinophils # 0.2 Basophils # 0.0 Nucleated Red Blood Cells # 0.0 Sodium Level 142 Potassium Level 4.2 Chloride Level 100 Carbon Dioxide Level 27 Anion Gap 19 H Blood Urea Nitrogen 25 H Creatinine 1.28 H Glucose Level 111 Calcium Level 9.0 Phosphorus Level 4.1 Magnesium Level 1.9 Medications Medications Current Medications Morphine Sulfate (morphine) 2 mg Q2H PRN IV FOR NON CARDIAC PAIN (4-10); Start 02/08/17 at 16:30 Ondansetron HCl (Zofran Inj) 4 mg Q4H PRN IV NAUSEA AND/OR VOMITING; Start 02/08 at 16:30 Aspirin (Aspirin) 325 mg DAILY PO Last administered on 02/10/17 08:46; Admin Dose 325 MG; Start 02/09/17 at 09:00 Atorvastatin Calcium (Lipitor) 80 mg HS PO Last administered on 02/08/17 20:52 ; Admin Dose 80 MG; Start 02/08/17 at 21:00 Acetaminophen (Tylenol Tab) 650 mg Q6H PRN PO PAIN; Start 02/09/17 at 13:00 Magnesium Hydroxide (Milk Of Mag) 30 ml HS PO ; Start 02/09/17 at 21:00 Nitroglycerin 1 tab 1 tab [id number] PRN SL CHEST PAIN; Start 02/09/17 at 13:00 Sodium Chloride 1,000 ml @ 75 mls/hr [id number] ONCE IV Last administered on 13:03; Admin Dose 75 MLS/HR; Start 02/10/17 at 11:00; Stop 02/11/17 at 00:19 Sodium Chloride (NS) 1,000 ml @ 50 mls/hr Q20H ONCE IV Last administered on 20:35; Admin Dose 50 MLS/HR; Start 02/10/17 at 20:00; Stop 02/11/17 at 15: 59 NAZARIO PERKINS MD Feb 10, 2017 21:20
[2017-02-10] MEDS ORDERED: SOD CHLORIDE 0.9% 1,000 ML IV SCH (21:30)
[2017-02-11] VITALS (9 sets, daily range): BP systolic 120–130; BP diastolic 54–60; PULSE 75–86; RESP 19–20
[2017-02-11 08:40] LABS: BASOPHILS % 0.4 % (0.0-2.0); EOSINOPHILS # 0.2 10^3/ul (0.0-0.5); EOSINOPHILS % 3.7 % (0.0-7.0); HEMOGLOBIN 12.6 g/dl (14.0-18.0); LYMPHOCYTES # 1.4 10^3/ul (0.8-2.9); LYMPHOCYTES % 26.4 % (15.0-51.0); MEAN CORPUSCULAR HEMOGLOBIN 30.7 pg (29.0-33.0); MEAN CORPUSCULAR HGB CONC 34.1 g/dl (32.0-37.0); MEAN CORPUSCULAR VOLUME 90.2 fl (82.0-101.0); MEAN PLATELET VOLUME 11.3 fl (7.4-10.4); MONOCYTE # 0.4 10^3/ul (0.3-0.9); MONOCYTES % 7.9 % (0.0-11.0); NEUTROPHIL # 3.4 10^3/ul (1.6-7.5); NEUTROPHILS % 61.2 % (39.0-77.0); PLATELET COUNT 124 10^3/UL (140-415); POSITIVE DIFF @See below; RED CELL DISTRIBUTION WIDTH 13.2 % (11.5-14.5); WHITE BLOOD COUNT 5.5 10^3/ul (4.8-10.8)
[2017-02-11] MEDS: ASPIRIN 325 MG TAB PO SCH (08:48)
--- NOTE | 2017-02-11 09:05 | PN ---
DATE: 02/11/2017 SUBJECTIVE DATA: The patient is scheduled for CT angio this morning. No other events noted. The patient is otherwise stable. No fevers, chills, nausea, vomiting. No shortness of breath. OBJECTIVE DATA: VITAL SIGNS: Blood pressure is 120/54, respirations 20, pulse 79, temperature 98.2. HEENT: Head is normocephalic. NECK: Supple. HEART: Regular rate. LUNGS: Show diminished breath sounds at the base. ABDOMEN: Soft, nontender to palpation. No rebound or guarding. EXTREMITIES: Negative for clubbing, cyanosis, no edema. DERMATOLOGIC: Clean. No rashes. MUSCULOSKELETAL: No joint effusion. NEUROLOGIC: No change in exam. MEDICATIONS: Reviewed. LABORATORY AND DIAGNOSTIC DATA: Currently pending. ASSESSMENT AND PLAN: 1. Nonoliguric acute kidney injury with unknown baseline creatinine. Etiology is likely secondary to hemodynamics. Renal function has been improving. Renal panel for today is pending. No evidence of contrast-induced nephropathy at this time. At this point, the patient has received appropriate hydration. May proceed with CT angiogram with moderate risk of contrast- associated nephropathy. Would otherwise continue supportive care. Renally dose all medications. Avoid nephrotoxins. 2. Anemia. Monitor H and H levels. 3. Mineral bone disorder. Continue to monitor calcium and phosphorus levels. 4. Severe aortic insufficiency of bioprosthetic valve. The patient is evaluated by CT Surgery, pending possible aortic valve replacement. 5. Ascending aortic aneurysm. The patient is pending CT angio. We will continue to monitor. Follow up with CT recommendations. 6. Acute diastolic heart failure. The patient currently is euvolemic on exam. We will complete a course of intravenous hydration prior to CT scan, then discontinue intravenous fluids. 7. Coronary artery disease with history of coronary artery bypass graft. Continue medical management. 8. Hypertension. Continue current blood pressure regimen. 9. Gastrointestinal and deep venous thrombosis prophylaxis. Continue proton pump inhibitor and sequential leg squeezes. Dictated By: Kingsley Reyez DO /alyssia/naomy /Document#: [id number]
[2017-02-11 09:10] LABS: CREATININE 1.12 mg/dl (0.61-1.24); PHOSPHORUS 3.4 mg/dl (2.5-4.9); POTASSIUM 4.5 mmol/L (3.5-5.1)
[2017-02-11] MEDS ORDERED: IODIXANOL LOCM 100 ML BTL ONE (09:23)
[2017-02-11] MEDS ORDERED: SOD CHLORIDE 0.9% 100 ML ONE (09:23)
[2017-02-11] MEDS ORDERED: IODIXANOL LOCM 50 ML BTL ONE (09:24)
--- NOTE | 2017-02-11 11:18 | RADRPT ---
PROCEDURE: CT Thoracic Angiogram. CLINICAL INDICATION: Chest pain. History of coronary artery disease, CABG, cardiac valve prosthes is. Evaluate for thoracic aortic aneurysm. TECHNIQUE: CT thoracic aortic angiogram and a CT scan of the chest with contrast was performed on the multi-slice CT scanner. The patient was scanned following the uncomplicated intravenous administ ration of 110 cc of Visipaque 320 intravenous contrast. 2-D coronal reformatted images were obtaine d from the axial source images. 3-D post-processing performed. DLP = 795.3 mGy-cm. CTDIVol = 105.6 m Gy. COMPARISON: None available FINDINGS: CT thoracic aortic angiogram: There is mild dilatation of the ascending aorta measuring up to 4 cm in diameter. There are small ul cerated plaques measuring up to 3 mm at the anterior wall of the ascending aorta (series 3, image 94 and 105). There is no evidence of thoracic aortic dissection. Sternotomy wires, CABG clips, aortic valve prosthesis is in place. Pulmonary arteries show normal opacification without evidence of pulm onary emboli. Aortic vascular and coronary calcifications are present. CT chest: There is trace bilateral pleural effusions or thickening at the posterior lower thoraces. There is no alveolar infiltrates, edema, or masses identified.. The central tracheobronchial tree appears wi thin normal limits. There is no evidence of mediastinal or hilar adenopathy or mass. The heart size is normal without ev idence for pericardial thickening or effusion. The axillary regions, subpectoral regions, and supraclavicular regions are all unremarkable. Imagin g obtained through the upper abdomen reveals no acute abnormality. The surrounding osseous structur es are remarkable for mild degenerative enthesopathy of the spine. No osteolytic or osteoblastic l esion is detected.. IMPRESSION: 1. Mild aneurysmal dilatation of the ascending aorta measuring up to 4 cm in diameter with small 3 mm ulcerated plaques at the anterior wall. Mild calcific atherosclerosis of the aorta. 2. No evidence of aortic dissection or pulmonary emboli. 3. Status post CABG and aortic valve prosthesis placement. 4. Trace bilateral pleural effusions or thickening. . RPTAT: GG .Moo Washburn MD, MD Date Time Electronically viewed and signed by .Moo Washburn MD, on 02/11/2017 11:17 .L/
--- NOTE | 2017-02-11 13:10 | PN ---
Date/Time of Note Date/Time of Note DATE: 02/11/17 TIME: 13:04 Assessment/Plan VTE Prophylaxis VTE Prophylaxis Intervention: ambulation, anti-embolic stocking VTE Contraindication Reason: peripheral vascular disease Lines/Catheters IV Catheter Type (from Nrsg): [employer] line still needed: No Urinary Cath still in place: No Reason Cath still needed: urinary retention Assessment/Plan Assessment/Plan 1.S/P AVR now with severe regurgitation; preserved LVEF 2.S/P Resection of coarctation of aorta 3.On cumadine 4.HTN 5.Dyslipidemia 6.Recent (less than a month )hx of left leg selling after long flight( possible thrombus) 7.CAD 8.BPH 9.Thoracic aortic aneurism 10.LBP 11.KELLY of knees 12. CT angio: Ascending aorta 4cm; 3mm atherosclerotic changes of aorta; No dissection incomplete.P.O and IV hydration. Subjective 24 Hr Interval Summary Free Text/Dictation Dry cough with dry mouth. I feel discomfort due to of palpitations on and off. Constitutional: improved, poor po, requiring O2, No chills, No diaphoresis, No disoriented, No febrile, No no complaints, No other, No requiring IVF Eyes: No discharge, No no complaints, No other, No pain, No redness, No visual change ENT: No bleeding, No congestion, No discharge, No dysphagia, No no complaints, No other, No pain, No sore throat Respiratory: cough, shortness of breath, No no complaints, No other, No pain, No pleuritic pain, No sputum, No wheezing Cardiovascular: chest pain, orthopenea, palpitations, paroxysmal nocturnal dyspnea, No edema, No lightheadedness, No no complaints, No other Gastrointestinal: constipation, decreased appetite, nausea, passing stool, No blood, No diarrhea, No flatus, No no complaints, No other, No pain, No vomiting Genitourinary: dysuria, No bleeding, No discharge, No flank pain, No hematuria, No no complaints, No other Musculoskeletal: back pain, bone/joint pain, neck pain, No no complaints, No other, No restricted range of motion, No swelling Skin: pruritis, No bruising, No erythema, No laceration, No no complaints, No other, No rash , No skin lesions Neurologic: headache, No confusion, No dizziness, No focal-weakness, No no complaints, No other, No seizure, No syncope Lymphatic: No adenopathy, No lymphadema, No no complaints, No other, No tender nodes Psychological: anxiety, No confusion, No depression, No nl mood/affect, No no complaints, No other, No suicidal Exam/Review of Systems Vital Signs Vitals Vital Signs Date Time Temp Pulse Resp B/P Pulse Ox O2 Delivery O2 Flow Rate FiO2 02/11/17 12:20 86 02/11/17 11:57 97.7 20 124/57 96 02/09/17 00:10 Room Air Intake and Output 02/10/17 02/10/17 02/11/17 15:00 23:00 07:00 Intake Total 100 ml 1250 ml Balance 100 ml 1250 ml Exam Constitutional: alert, frail, oriented, No distress, No non-verbal, No obese, No other, No well developed Psych: anxiety, nl mood/affect, No confusion, No depression, No no complaints, No other, No suicidal Eyes: EOMI, PERRL, nl conjunctiva, nl lids, No fundi, disc, No icteric, No nl sclera, No other ENMT: nl lips & teeth, nl nasal mucosa & septum, No intubated, No mucosa pink and moist, No nl external ears & nose, No other , No tympanic membranes Neck: bruits, jvd, non-tender, No masses, No nuchal rigidity, No other, No supple, No thyromegaly Respiratory: congested cough, diminished breath sounds, normal air movement, respirations, No clear to auscultation, No crackles/rales, No intercostal retraction, No labored breathing, No other, No tactile fremitus, No wheezing Cardiovascular: bruits, diastolic murmur, jugular venous distention (JVD), murmurs/extra sounds, nl pulses, systolic murmur, No S3, No S4, No edema, No gallop, No irregular rhythm, No other, No regular rate and rhythm, No rub Gastrointestinal: bowel sounds, nl liver, spleen, soft, surgical scars, No ascites, No distended, No firm, No hepatomegaly, No mass, No non-tender, No other, No rebound or guarding, No splenomegaly, No tender Genitourinary - Male: nl penis, nl scrotum, No CVA tenderness, No discharge, No other Musculoskeletal: joint tenderness, muscle tone, muscle weakness, nl gait and stance, No nl extremities to inspection, No other, No range of motion, No spine non- tender, No swelling Extremities: calf tenderness, No clubbing, No cyanosis, No edema, No normal pulses, No other, No palpable cord, No pitting pedal edema, No tenderness Neurological: SHOW HOST/HOSTESS II-XII intact, DTR's symmetric, numbness, No confused, No focal weakness, No lethargic, No nl mental status, No nl speech, No nl strength, No other, No reflexes, No unresponsive Results Result Diagram: 02/11/1719 02/11/17 0819 Results 24 hrs Laboratory Tests Test 02/11/17 08:19 White Blood Count 5.5 Red Blood Count 4.10 L Hemoglobin 12.6 L Hematocrit 37.0 L Mean Corpuscular Volume 90.2 Mean Corpuscular Hemoglobin 30.7 Mean Corpuscular Hemoglobin Concent 34.1 Red Cell Distribution Width 13.2 Platelet Count 124 L Mean Platelet Volume 11.3 H Neutrophils % 61.2 Lymphocytes % 26.4 Monocytes % 7.9 Eosinophils % 3.7 Basophils % 0.4 Nucleated Red Blood Cells % 0.0 Neutrophils # 3.4 Lymphocytes # 1.4 Monocytes # 0.4 Eosinophils # 0.2 Basophils # 0.0 Nucleated Red Blood Cells # 0.0 Sodium Level 142 Potassium Level 4.5 Chloride Level 105 Carbon Dioxide Level 22 Anion Gap 20 H Blood Urea Nitrogen 19 Creatinine 1.12 Glucose Level 101 Calcium Level 9.0 Phosphorus Level 3.4 Magnesium Level 2.0 Medications Medications Current Medications Morphine Sulfate (morphine) 2 mg Q2H PRN IV FOR NON CARDIAC PAIN (4-10); Start 02/08/17 at 16:30 Ondansetron HCl (Zofran Inj) 4 mg Q4H PRN IV NAUSEA AND/OR VOMITING; Start 02/08 at 16:30 Aspirin (Aspirin) 325 mg DAILY PO Last administered on 02/11/17 08:48; Admin Dose 325 MG; Start 02/09/17 at 09:00 Atorvastatin Calcium (Lipitor) 80 mg HS PO Last administered on 02/08/17 20:52 ; Admin Dose 80 MG; Start 02/08/17 at 21:00 Acetaminophen (Tylenol Tab) 650 mg Q6H PRN PO PAIN; Start 02/09/17 at 13:00 Magnesium Hydroxide (Milk Of Mag) 30 ml HS PO ; Start 02/09/17 at 21:00 Nitroglycerin (Nitroglycerin (Sl Tab) 0.4 Mg) 1 tab [id number] PRN SL CHEST PAIN ; Start 02/09/17 at 13:00 VICKY CRAIG MD Feb 11, 2017 13:10
--- NOTE | 2017-02-11 16:47 | CONS ---
Date/Time of Note Date/Time of Note DATE: 02/11/17 TIME: 16:44 Assessment/Plan Assessment/Plan Chief Complaint/Hosp Course Severe aortic regurgitation of bioprosthetic AVR: needs AVR either surgical or TAVR CAD s/p CABG: occluded vein grafts. Intermediate RCA disease (likely nonischemic). Intermediate SALDIVAR disease (in an aneurysmal segment) which may be ischemic. Ascending aorta aneurysm: 4 cm on chest CTA Coarctation repair: no gradient noted Acute diastolic/valvular heart failure: Mild on admission and prior to cath. EDP was elevated by cath. Now euvolemic by exam. CKD: improving, no evidence of AMELIA -ascending aorta aneurysm is well <5cm, can consider for TAVR +/- FFR and PCI of SALDIVAR (though only small septal ischemia by MPI and symptoms may all just be related to his aortic valve) -stable for discharge from cardiac standpoint, refer to [facility] for TAVR evaluation -continue ASA, statin -hold BB for now as may worsen AR Problems: Consultation Date/Type/Reason Admit Date/Time Feb 08, 2017 at 16:19 Initial Consult Date 02/09/17 Type of Consultation: Cardiology 24 HR Interval Summary Free Text/Dictation No acute events. Chest CTA shows only mild ascending aorta aneurysm measuring up to 4 cm. Detailed Summary Additional Comments 14 point review of systems without changes. Exam/Review of Systems Vital Signs Vitals Vital Signs Date Time Temp Pulse Resp B/P Pulse Ox O2 Delivery O2 Flow Rate FiO2 02/11/17 16:15 85 02/11/17 16:03 98.0 20 130/60 98 02/09/17 00:10 Room Air Intake and Output 02/10/17 02/10/17 02/11/17 15:00 23:00 07:00 Intake Total 100 ml 1250 ml Balance 100 ml 1250 ml Exam Constitutional: alert, oriented Psych: no complaints Head: atraumatic, normocephalic Neck: jvd (7cm) Respiratory: clear to auscultation, No crackles/rales Cardiovascular: diastolic murmur (2/4), regular rate and rhythm, systolic murmur (2/6) Gastrointestinal: non-tender, soft Extremities: other (right groin no hematoma or bruit ) Neurological: nl mental status, nl speech Results Result Diagram: 8/4/17 0819 8/4/17 0819 Results 24 hrs Laboratory Tests Test 02/11/17 08:19 White Blood Count 5.5 Red Blood Count 4.10 L Hemoglobin 12.6 L Hematocrit 37.0 L Mean Corpuscular Volume 90.2 Mean Corpuscular Hemoglobin 30.7 Mean Corpuscular Hemoglobin Concent 34.1 Red Cell Distribution Width 13.2 Platelet Count 124 L Mean Platelet Volume 11.3 H Neutrophils % 61.2 Lymphocytes % 26.4 Monocytes % 7.9 Eosinophils % 3.7 Basophils % 0.4 Nucleated Red Blood Cells % 0.0 Neutrophils # 3.4 Lymphocytes # 1.4 Monocytes # 0.4 Eosinophils # 0.2 Basophils # 0.0 Nucleated Red Blood Cells # 0.0 Sodium Level 142 Potassium Level 4.5 Chloride Level 105 Carbon Dioxide Level 22 Anion Gap 20 H Blood Urea Nitrogen 19 Creatinine 1.12 Glucose Level 101 Calcium Level 9.0 Phosphorus Level 3.4 Magnesium Level 2.0 Medications Medications Current Medications Morphine Sulfate (morphine) 2 mg Q2H PRN IV FOR NON CARDIAC PAIN (4-10); Start 02/08/17 at 16:30 Ondansetron HCl (Zofran Inj) 4 mg Q4H PRN IV NAUSEA AND/OR VOMITING; Start 02/08 at 16:30 Aspirin (Aspirin) 325 mg DAILY PO Last administered on 02/11/17 08:48; Admin Dose 325 MG; Start 02/09/17 at 09:00 Atorvastatin Calcium (Lipitor) 80 mg HS PO Last administered on 02/08/17 20:52 ; Admin Dose 80 MG; Start 02/08/17 at 21:00 Acetaminophen (Tylenol Tab) 650 mg Q6H PRN PO PAIN; Start 02/09/17 at 13:00 Magnesium Hydroxide (Milk Of Mag) 30 ml HS PO ; Start 02/09/17 at 21:00 Nitroglycerin (Nitroglycerin (Sl Tab) 0.4 Mg) 1 tab [id number] PRN SL CHEST PAIN ; Start 02/09/17 at 13:00 NAZARIO PERKINS MD Feb 11, 2017 16:47
--- NOTE | 2017-02-11 17:20 | PDOCDIS ---
Discharge Instructions CONDITION Patient Condition: Fair HOME CARE INSTRUCTIONS: Diet Instructions: 2gm NaSpecial Diet: PERLA ACTIVITY: Activity Restrictions: Slowly Increase Activity Rest between Activity Avoid heavy lifting Avoid Heavy Housework No Weight Bearing Bathing Restrictions: Tub Bath FOLLOW UP/APPOINTMENTS Follow-up Plan F/U to in 5 days. VICKY CRAIG MD Feb 11, 2017 17:20
--- NOTE | 2017-02-11 17:22 | DS ---
Date/Time of Note Date/Time of Note DATE: 02/11/17 TIME: 17:22 Discharge Summary Admission/Discharge Info Admit Date/Time Feb 08, 2017 at 16:19 Discharge Date/Time Discharge Diagnosis 1.S/P AVR now with severe regurgitation; preserved LVEF 2.S/P Resection of coarctation of aorta 3.KELLY of knees 4.HTN 5.Dyslipidemia 6.Recent (less than a month )hx of left leg selling after long flight( possible thrombus) 7.CAD 8.BPH 9.Thoracic aortic aneurism 10.LBP Patient Condition: Fair Hx of Present Illness Doing well until about one week ago when he felt weakness while swimming.Patint returned from [facility] about 2 weeks ago and had noticed of having left leg swelling after about 14 hours of flight from [facility]. 3-4 days after that swelling disappeared. Last 2-3 days before entering the [facility] hospital his sob got even worse. He was unable to walk 6-7 steps. At night he literally was suffocating.Transferred to [facility] for angio and valvular status check.Chart reviewed. Hospital Course Severe aortic regurgitation of bioprosthetic AVR: needs AVR either surgical or TAVR CAD s/p CABG: occluded vein grafts. Intermediate RCA disease (likely nonischemic). Intermediate SALDIVAR disease (in an aneurysmal segment) which may be ischemic. Ascending aorta aneurysm: 4 cm on chest CTA Coarctation repair: no gradient noted Acute diastolic/valvular heart failure: Mild on admission and prior to cath. EDP was elevated by cath. Now euvolemic by exam. CKD: improving, no evidence of AMELIA -ascending aorta aneurysm is well <5cm, can consider for TAVR +/- FFR and PCI of SALDIVAR (though only small septal ischemia by MPI and symptoms may all just be related to his aortic valve) -stable for discharge from cardiac standpoint, refer to [facility] for TAVR evaluation -continue ASA, statin -hold BB for now as may worsen AR Home Meds Reported Medications Nitroglycerin* (Nitroglycerin* SL) 0.4 Mg Tab.subl, 0.4 MG SL Q5MIN Y for CHEST PAIN, BOTTLE 02/08/17 Acetaminophen* (Acetaminophen*) 325 Mg Tablet, 650 MG PO Q6 hrs Y for PAIN, #30 TAB 02/08/17 Atenolol* (Atenolol*) 50 Mg Tablet, 50 MG PO BID, #60 TAB 02/08/17 Aspirin Ec (Aspir 81) 81 Mg Tablet.dr, 325 MG PO DAILY, #30 TAB 02/08/17 Discontinued Reported Medications Aluminum Hydroxide (ALUMINUM HYDROXIDE) 1 Gm Granules, 30 ML PO Q6H 02/08/17 Magnesium Hydroxide* (Milk Of Magnesia*) 400 Mg/5 Ml Oral.susp, 30 ML PO HS, ML 02/08/17 Morphine Sulfate (Morphine Sulfate) 2 Mg/1 Ml Syringe, 2 MG IV Q4H for PAIN 02/08/17 Ondansetron HCl (Ondansetron HCl) 2 Mg/1 Ml Vial, 4 MG IV Q6H for N/V, VIAL 02/08/17 Atorvastatin Calcium (Atorvastatin Calcium) 10 Mg Tablet, 40 MG PO QHS, #30 TAB 02/08/17 Follow-up Plan F/U to in 5 days. Primary Care Provider Care Physician No Primary Time spent on discharge: > 30 minutes Pending Labs Laboratory Tests Test 02/11/17 08:19 White Blood Count 5.510^3/ul (4.8-10.8) Red Blood Count 4.1010^6/ul (4.70-6.10) Hemoglobin 12.6g/dl (14.0-18.0) Hematocrit 37.0% (42.0-52.0) Mean Corpuscular Volume 90.2fl (82.0-101.0) Mean Corpuscular Hemoglobin 30.7pg (29.0-33.0) Mean Corpuscular Hemoglobin Concent 34.1g/dl (32.0-37.0) Red Cell Distribution Width 13.2% (11.5-14.5) Platelet Count 35536^3/UL (140-415) Mean Platelet Volume 11.3fl (7.4-10.4) Neutrophils % 61.2% (39.0-77.0) Lymphocytes % 26.4% (15.0-51.0) Monocytes % 7.9% (0.0-11.0) Eosinophils % 3.7% (0.0-7.0) Basophils % 0.4% (0.0-2.0) Nucleated Red Blood Cells % 0.0/100WBC (0.0-0.0) Neutrophils # 3.410^3/ul (1.6-7.5) Lymphocytes # 1.410^3/ul (0.8-2.9) Monocytes # 0.410^3/ul (0.3-0.9) Eosinophils # 0.210^3/ul (0.0-0.5) Basophils # 0.010^3/ul (0.0-0.1) Nucleated Red Blood Cells # 0.010^3/ul (0.0-0.0) Sodium Level 142mmol/L (135-144) Potassium Level 4.5mmol/L (3.5-5.1) Chloride Level 105mmol/L (97-110) Carbon Dioxide Level 22mmol/L (21-31) Anion Gap 20 (8-16) Blood Urea Nitrogen 19mg/dl (7-20) Creatinine 1.12mg/dl (0.61-1.24) Glucose Level 101mg/dl (70-220) Calcium Level 9.0mg/dl (8.4-10.2) Phosphorus Level 3.4mg/dl (2.5-4.9) Magnesium Level 2.0mg/dl (1.7-2.5) VICKY CRAIG MD Feb 11, 2017 17:22
== END 2017-02-11 18:00 | disposition home or self-care (01) | DRG 286 ==
LOC: CCL 11:47 → MS4 16:19
PROVIDERS: ADMIT Internal Medicine Interventional Cardiology; ATTEND Family Medicine
PROC: B2081ZZ Plain Radiography of Left Internal Mammary Bypass Graft using Low Osmolar Contrast (ICD-10-PCS; 2017-02-08)
PROC: B2011ZZ Plain Radiography of Multiple Coronary Arteries using Low Osmolar Contrast (ICD-10-PCS; 2017-02-08)
PROC: 4A023N8 Measurement of Cardiac Sampling and Pressure, Bilateral, Percutaneous Approach (ICD-10-PCS; principal; 2017-02-08 14:00)
PROC: B2021ZZ Plain Radiography of Single Coronary Artery Bypass Graft using Low Osmolar Contrast (ICD-10-PCS; 2017-02-08 14:00)
DX: T82.897A Other specified complication of cardiac prosthetic devices, implants and grafts, initial encounter (principal); I50.31 Acute diastolic (congestive) heart failure; N17.9 Acute kidney failure, unspecified; I25.710 Atherosclerosis of autologous vein coronary artery bypass graft(s) with unstable angina pectoris; Q25.1 Coarctation of aorta; I25.110 Atherosclerotic heart disease of native coronary artery with unstable angina pectoris; I13.0 Hypertensive heart and chronic kidney disease with heart failure and stage 1 through stage 4 chronic kidney disease, or unspecified chronic kidney disease; I35.1 Nonrheumatic aortic (valve) insufficiency; I71.2 Thoracic aortic aneurysm, without rupture; Z95.5 Presence of coronary angioplasty implant and graft; N18.9 Chronic kidney disease, unspecified
CPT/HCPCS: 36600; 71275; 75605; 76775; 80048; 81001; 81003; 82043; 82803; 83735; 84100; 84155; 84300; 85025; 93461; C1769; C1887; J1644; J1940; J2250; J2405; J3010; J7030; J7040; Q9967